=== PATIENT | male | born 2000 ===

== ENCOUNTER 2022-08-02 15:05 | Emergency (ER) | payer OTHER, SELFPAY ==
[2022-08-02] VITALS (8 sets, daily range): BP systolic 113–125; BP diastolic 59–85; PULSE 60–80; RESP 12–18; TEMP 37.1; O2SAT 97–99; BMI 27.9
--- NOTE | 2022-08-02 17:06 | ED_ITS ---
HPI - General Adult General Time Seen by Provider: 17:06 Date Seen: 08/02/22 Chief complaint: Chest Pain Stated complaint: Chest pain Time Seen by Provider: 08/02/22 17:05 Source: patient and RN notes reviewed Mode of arrival: ambulatory Limitations: no limitations History of Present Illness HPI narrative: This 22-year-old male is coming to the ER with chest discomfort. He is worried it is his heart. He notes that he feels like he can feel it moving in his chest. It is substernal in nature but then radiates throughout the chest. He is not feeling short of breath per se but feels like sometimes he just can not get enough air. He is feeling globally weak and feels more weak sometimes with walking. He is worried that this could be the new antidepressant that he was started on last Tuesday. He admits that he was having some of these chest symptoms prior to starting this but it worsened lasting longer. He does have a little nausea or stomach upset since starting the citalopram a but no vomiting, no abdominal pain. He had COVID back in 2019, has not been sick with any cold- like illness sense. There is no associated cough or cold symptoms. He denies any prior cardiac or respiratory history. He is a student at [email or web address], studying economics. He is originally from [place]. Is not aware of any family history that is concerning. Related Data Home Medications Medication Instructions Recorded Confirmed citalopram 10 mg tablet (Celexa) 10 mg PO DAILY 08/02/22 08/02/22 Allergies Allergy/AdvReac Type Severity Reaction Status Date / Time No Known Drug Allergies Allergy Verified 08/02/22 15:20 Review of Systems Status of ROS: Reports: 10 or more systems reviewed and unremarkable except as noted in History and below [facility] Social History Smoking Status: Never smoker Do you use any of these nicotine containing products: None Second hand tobacco smoke exposure: No How often do you have a drink containing alcohol: never AUDIT-C Alcohol total score: 0 Non-prescribed substance use: denies use Exam Const: Vital Signs, click to edit/add: Vital Signs - 24 hr 08/02/22 15:15 08/02/22 17:12 Temperature 98.7 F Pulse Rate [Pulse Oximeter] 77 Respiratory Rate 18 Blood Pressure [Ri ght Upper Arm] 119/82 Pulse Oximetry 97 99 Oxygen Delivery Me thod Room Air Documenting provider has reviewed patient's vital signs: yes Common normals: no apparent distress, average body habitus, oriented x3, no limitations, healthy appearing, alert and well nourished General appearance: cooperative, comfortable and well [facility] HENMT: Common normals: normocephalic, head/scalp atraumatic, hearing grossly normal bilaterally, external ears normal, external nose normal, nasal mucous membranes and turbinates normal, moist oral mucous membranes, oropharynx normal, dentition normal and gingiva normal Head and scalp: normocephalic and atraumatic Nose: external nose normal and nasal mucous membranes and turbinates normal External ear: external ears normal Eye: Common normals: PERRL, EOMs intact bilaterally, conjunctivae normal and no scleral icterus Conjunctiva: conjunctiva(e) normal Pupil: PERRL Neck & C-Spine: Common normals: full ROM, no lymphadenopathy, supple, no meningeal signs, no JVD and thyroid normal Thyroid: thyroid normal Chest: Common normals: inspection of chest normal and palpation of chest normal Resp: Common normals: normal respiratory effort, no retractions, no use of accessory muscles and clear to auscultation bilaterally Auscultation: clear to auscultation bilaterally Cardio: Common normals: no JVD, regular rate, regular rhythm, S1 normal heart sound, S2 normal heart sound, no gallops, no clicks, no murmurs and no rub Rate: regular rate Rhythm: regular rhythm Heart sounds: S1 normal and S2 normal GI: Common normals: Normal to inspection, nondistended, normoactive bowel sounds present, soft to palpation, non-tender, no hepatosplenomegaly, no masses and no bruits Palpation: soft and no hepatosplenomegaly Back & Pelvis: Common normals: thoracic and lumbar spine normal to inspection and thoraco-lumbar ROM normal Extremity: Common normals: normal to inspection, full ROM, normal capillary refill, no joint enlargement, no clubbing, cyanosis or edema, no calf tenderness and no pedal edema Neuro: Common normals: oriented x3 and gait normal Sensorium/orientation: alert Meningeal signs: no meningeal signs Speech: speech normal Psych: Appearance: well [facility] Course Course Hospital Course: Obtain EKG, have him on pulse oximetry and cardiac monitoring. We will get some baseline labs including cardiac enzymes, will do a D-dimer. In a 22-year-old without illness, am doubtful that this represents anything like myopericarditis. Will look at two-view chest x-ray as well. Reevaluation(s) Reevaluation #1: Patient was resting comfortably when I went back in to talk to him. He did awaken easily. Reviewed with him his normal labs, D-dimer normal, troponin normal, no elevation of his white count. He was started on escitalopram for his anxiety. He thinks the symptoms are side effects. Try to encourage him to stay on the citalopram and give it some time as many people will adjust to some of the side effects they feel initially when starting these medicines. Did review with him that chest symptoms such as chest pain can be part of anxiety itself. We did discuss meditation self relaxation techniques, urged him to look on the Internet as there plenty of resources for both of these. Time: 18:52 Vital Signs Vital signs: Initial Vital Signs Temperature 98.7 F 08/02/22 15:15 Temperature Source Temporal Artery Scan 08/02/22 15:15 Pulse Rate 77 08/02/22 15:15 Respiratory Rate 18 08/02/22 15:15 Blood Pressure 119/82 08/02/22 15:15 Blood Pressure Mean 94 08/02/22 15:15 Blood Pressure Position Sitting 08/02/22 15:15 Pulse Oximetry 97 08/02/22 15:15 Oxygen Delivery Method 08/02/22 15:15 Vital Signs Temperature 98.7 F 08/02/22 15:15 Pulse Rate 77 08/02/22 15:15 Respiratory Rate 18 08/02/22 15:15 Blood Pressure 119/82 08/02/22 15:15 Pulse Oximetry 97 08/02/22 15:15 Oxygen Delivery Method 08/02/22 15:15 Temperature 98.7 F 08/02/22 15:15 Pulse Rate 77 08/02/22 15:15 Respiratory Rate 18 08/02/22 15:15 Blood Pressure 119/82 08/02/22 15:15 Pulse Oximetry 99 08/02/22 17:12 Oxygen Delivery Method 08/02/22 15:15 Medical Decision Making Lab Data Lab results reviewed: Yes I reviewed the patient's lab results Labs: Lab Results 1008/02/22 08/02/22 Range/Units 17:30 17:30 17:30 WBC 8.31 (4.50-11.00) K/uL RBC 5.05 (4.30-5.90) m/uL Hgb 16.0 (13.5-17.5) gm/dL Hct 46.5 (37.0-53.0) % MCV 92 (80-100) fL MCH 32 (26-34) pg MCHC 34 (32-36) gm/dL RDW Coeff of Karina 13.0 (11.5-15.5) % Plt Count 275 (140-440) K/uL Neut % (Auto) 58.8 (42.0-72.0) % Lymph % (Auto) 29.4 (20-44) % Calloway % (Auto) 9.6 (0.0-11.0) % Eos % (Auto) 1.4 (0.0-7.0) % Baso % (Auto) 0.4 (0.0-3.0) % Neut # (Auto) 4.89 (1.7-7.0) K/uL Lymph # (Auto) 2.44 (0.90-2.90) K/uL Calloway # (Auto) 0.80 (0.00-0.90) K/UL Eos # (Auto) 0.12 (0.00-0.50) K/uL Baso # (Auto) 0.03 (0.00-0.30) K/uL Abs Immat Gran (auto) 0.03 (0.00-0.30) K/uL D-Dimer Quant (PE/DVT) < 0.27 (0.00-0.50) ug/ml Sodium 137 (135-149) mmol/L Potassium 4.2 (3.6-5.1) mmol/L Chloride 102 (96-114) mmol/L Carbon Dioxide 24 (20-32) mmol/L BUN 12 (5-24) mg/dL Creatinine 0.6 (0.5-1.5) mg/dL Estimated Creat Clear 177.22 Estimated GFR 142 ml/min Glucose 96 (60-115) mg/dL Calcium 9.6 (8.4-10.6) mg/dL Total Bilirubin 0.3 (0.1-1.5) mg/dL AST 37 H (12-35) U/L ALT 60 H (4-50) U/L Alkaline Phosphatase 98 (40-150) U/L C-Reactive Protein < 0.5 L (0.5-1.0) mg/dL NT-Pro-B Natriuret Pep 22 (0-125) PG/mL Total Protein 7.6 (6.0-8.3) g/dL Albumin 4.7 (3.3-5.0) g/dL POC Troponin I (0.01-0.04) ng/ml 08/02/22 Range/Units 17:30 WBC (4.50-11.00) K/uL RBC (4.30-5.90) m/uL Hgb (13.5-17.5) gm/dL Hct (37.0-53.0) % MCV (80-100) fL MCH (26-34) pg MCHC (32-36) gm/dL RDW Coeff of Karina (11.5-15.5) % Plt Count (140-440) K/uL Neut % (Auto) (42.0-72.0) % Lymph % (Auto) (20-44) % Calloway % (Auto) (0.0-11.0) % Eos % (Auto) (0.0-7.0) % Baso % (Auto) (0.0-3.0) % Neut # (Auto) (1.7-7.0) K/uL Lymph # (Auto) (0.90-2.90) K/uL Calloway # (Auto) (0.00-0.90) K/UL Eos # (Auto) (0.00-0.50) K/uL Baso # (Auto) (0.00-0.30) K/uL Abs Immat Gran (auto) (0.00-0.30) K/uL D-Dimer Quant (PE/DVT) (0.00-0.50) ug/ml Sodium (135-149) mmol/L Potassium (3.6-5.1) mmol/L Chloride (96-114) mmol/L Carbon Dioxide (20-32) mmol/L BUN (5-24) mg/dL Creatinine (0.5-1.5) mg/dL Estimated Creat Clear Estimated GFR ml/min Glucose (60-115) mg/dL Calcium (8.4-10.6) mg/dL Total Bilirubin (0.1-1.5) mg/dL AST (12-35) U/L ALT (4-50) U/L Alkaline Phosphatase (40-150) U/L C-Reactive Protein (0.5-1.0) mg/dL NT-Pro-B Natriuret Pep (0-125) PG/mL Total Protein (6.0-8.3) g/dL Albumin (3.3-5.0) g/dL POC Troponin I 0.00 L (0.01-0.04) ng/ml Imaging Data Chest x-ray: Attestation: I have reviewed the pertinent imaging results. My impression: On my preliminary review, I see no acute cardiopulmonary pathology on this chest x-ray. Radiologist's impression: Patient: HERVE UGARTE Facility:?[facility] Patient ID:?[id number] Site Patient ID:?[id number]. Site :?[id number] Study:?XRay Chest 2 VIEWS-08/02/2022 5:49:18 PM Ordering Physician:?Maria D James Final Report: INDICATION: CHEST DISCOMFORT TECHNIQUE: Chest 2 views. COMPARISON: None. FINDINGS: Cardiovascular and mediastinum: Heart size and vasculature are normal in caliber and appearance. Mediastinum is within normal limits. Lungs and pleural spaces: Lungs are clear. No sign of infiltrate or mass. No sign of pleural effusion. No pneumothorax. Bones and soft tissues: No significant findings. IMPRESSION: Unremarkable chest. Dictated by: Herve Pacheco MD @ 08/02/2022 17:52:34 (Electronic Signature) ECG Data Attestation: I personally reviewed and interpreted this ECG as follows: (Sinus rhythm with sinus arrhythmia, 70 beats per minute. J-point elevation.) Prior ECG tracings: not available for review Critical Care Time Critical Care Time Critical Care Time: No Discharge Plan Discharge Clinical Impression: Chest pain Condition: Stable Instructions: Chest Pain (ED), Anxiety (ED) Additional Instructions: Follow-up at the [facility] [place] within the next week. At this time, I do not recommend just stopping the medication, talk to the provider before you stop this. If you note that you are having increasing chest pain, become short of breath or difficulty breathing with worsening chest pain, develops fevers with this, do recommend you seek re-evaluation. You certainly can try some Tyl enol and ibuprofen to see if this does help with any of the symptoms, follow bottle directions for dosing. Activity Level: Activity as Tolerated Discharge Diet: Regular Prescriptions: No Action citalopram [Celexa] 10 mg tablet 10 mg PO DAILY Stand Alone Forms: [employer] Medical Info Instructions
--- NOTE | 2022-08-02 17:12 | CRLHL7_ITS ---
For Patients: As a result of the Century Cures Act, medical imaging exams and procedure reports are released immediately into your electronic medical record. You may view this report before your referring provider. If you have questions, please contact your health care provider. INDICATION: CHEST DISCOMFORT TECHNIQUE: Chest 2 views. COMPARISON: None. FINDINGS: Cardiovascular and mediastinum: Heart size and vasculature are normal in caliber and appearance. Mediastinum is within normal limits. Lungs and pleural spaces: Lungs are clear. No sign of infiltrate or mass. No sign of pleural effusion. No pneumothorax. Bones and soft tissues: No significant findings. IMPRESSION: Unremarkable chest. Dictated by: Herve Pacheco MD @ 08/02/2022 17:52:34 (Electronically Signed)
[2022-08-02 17:38] LABS: Basophils Absolute Auto 0.03 K/uL (0.00-0.30); Basophils Percent Auto 0.4 % (0.0-3.0); Eosinophils Absolute Auto 0.12 K/uL (0.00-0.50); Eosinophils Percent Auto 1.4 % (0.0-7.0); Hematocrit 46.5 % (37.0-53.0); Immature Granulocytes Abs Auto 0.03 K/uL (0.00-0.30); Lymphocytes Absolute Auto 2.44 K/uL (0.90-2.90); Lymphocytes Percent Auto 29.4 % (20-44); Mean Corpuscular HGB Conc 34 gm/dL (32-36); Mean Corpuscular Hemoglobin 32 pg (26-34); Mean Corpuscular Volume 92 fL (80-100); Monocytes Percent Auto 9.6 % (0.0-11.0); Neutrophils Absolute Auto 4.89 K/uL (1.7-7.0); Neutrophils Percent Auto 58.8 % (42.0-72.0); Platelet Count* 275 K/uL (140-440); Red Blood Count 5.05 m/uL (4.30-5.90); White Blood Count* 8.31 K/uL (4.50-11.00)
[2022-08-02 17:43] LABS: Slide Review Reflex No
--- NOTE | 2022-08-02 17:43 | ED.NURSE ---
Pt to and back from radiology
[2022-08-02 17:57] LABS: Albumin* 4.7 g/dL (3.3-5.0); Chloride* 102 mmol/L (96-114); Sodium* 137 mmol/L (135-149)
[2022-08-02 17:58] LABS: Potassium* 4.2 mmol/L (3.6-5.1)
[2022-08-02 17:59] LABS: Creatinine* 0.6 mg/dL (0.5-1.5); Est. Creatinine Clearance* 177.22; Estimated Glomerular Filt Rate 142 ml/min
[2022-08-02 18:00] LABS: Alanine Aminotransferase* 60 U/L (4-50); Alkaline Phosphatase* 98 U/L (40-150); Aspartate Amino Transferase* 37 U/L (12-35); Bilirubin Total* 0.3 mg/dL (0.1-1.5); Blood Urea Nitrogen* 12 mg/dL (5-24); Carbon Dioxide* 24 mmol/L (20-32); Total Protein* 7.6 g/dL (6.0-8.3)
[2022-08-02 18:01] LABS: Calcium* 9.6 mg/dL (8.4-10.6); Glucose* 96 mg/dL (60-115)
[2022-08-02 18:09] LABS: NT Pro B Type NatriureticPept* 22 PG/mL (0-125)
[2022-08-02 18:21] LABS: C Reactive Protein* < 0.5 mg/dL (0.5-1.0); D Dimer Quantitative* < 0.27 ug/ml (0.00-0.50)
== END 2022-08-02 19:26 | disposition home or self-care (01) ==
PROVIDERS: Emergency Provider Family Medicine
DX: R07.9 Chest pain, unspecified (principal); Z13.228 Encounter for screening for other metabolic disorders
CPT/HCPCS: 36415; 71046; 80053; 83880; 84484; 85025; 85379; 86140; 93005; 94761; 99284